=== PATIENT | female | born 1995 | race African-American/Black ===

== ENCOUNTER 2023-08-25 10:33 | Emergency (ER) | payer MEDICAID ==
[~2023-08-25] VITALS: Ht 167.6 cm; Wt 71.0 kg
[2023-08-25 10:38] VITALS: O2SAT 99
[2023-08-25 11:20] LABS: CLARITY URINE CLOUDY (CLEAR); COLOR URINE YELLOW (YELLOW); GLUCOSE URINE NEGATIVE (NEGATIVE); KETONES URINE TRACE (NEGATIVE); LEUKOCYTE ESTERASE URINE 1+ (NEGATIVE); NITRITE URINE POSITIVE (NEGATIVE); OCCULT BLOOD URINE 3+ (NEGATIVE); PH URINE 5.5 (4.5-8.0); PROTEIN URINE 1+ (NEGATIVE); SPECIFIC GRAVITY URINE 1.014 (1.005-1.030); UROBILINOGEN URINE 0.2 E.U./dL (0.2-1.0)
[2023-08-25 11:34] LABS: BACTERIA URINE 4+; RBC URINE 25-50 /hpf (0-2); WBC URINE 15-25 /hpf (0-2)
[2023-08-25 11:35] LABS: SQUAMOUS EPITHELIAL CELL URINE 1+ /lpf (RARE/1+); YEAST URINE NONE SEEN
[2023-08-25] MEDS ORDERED: IBUPROFEN 600MG TABLET PO ONE (13:00)
[2023-08-25] MEDS ORDERED: CEFTRIAXONE SODIUM 1 G/VIAL IM ONE (13:00)
[2023-08-25] MEDS ORDERED: ACETAMINOPHEN 325MG TABLET PO ONE (14:15)
[2023-08-25] MEDS ORDERED: CEPH500C2 MT (16:04)
[2023-08-25] MEDS ORDERED: NAPR220C61 MT (16:06)
[2023-08-25 16:11] VITALS: BP 98/63; PULSE 90; RESP 19; TEMP 98.7
== END 2023-08-25 16:30 | disposition home or self-care (01) ==
LOC: ER 11:02
DX: N12 Tubulo-interstitial nephritis, not specified as acute or chronic (principal)
CPT/HCPCS: 99283; 81003; 81025; 87086; 96372; J0696